=== PATIENT | female | born 1985 | race Caucasian/White ===

== ENCOUNTER 2021-01-14 18:52 | Emergency (ER) | payer OTHER ==
--- NOTE | 2021-01-14 19:06 | EDM.PDOC ---
ED HPI GENERAL MEDICAL PROBLEM - General Stated Complaint: FOOT INJURY Time Seen by Provider: 01/14/21 18:58 Source of Information: Reports: Patient History Limitations: Reports: No Limitations - History of Present Illness INITIAL COMMENTS - FREE TEXT/NARRATIVE: Patient presents from the [place] with an inversion left ankle/foot injury. No previous injury. Not able to stand on it. no other injury. most of the pain is radiating to the 5th toe. Onset: Today Duration: Constant Location: Reports: Lower Extremity, Left Improves with: Reports: None Worsens with: Reports: Movement Associated Symptoms: Reports: No Other Symptoms Left Foot Pain Score (Numeric/FACES): 8 - Related Data Allergies Allergy/AdvReac Type Severity Reaction Status Date / Time No Known Allergies Allergy Verified 01/14/21 19:11 Home Meds: Home Meds . [No Known Home Meds] 01/14/21 [History] Past Medical History - Past Surgical History HEENT Surgical History: Reports: Tonsillectomy Musculoskeletal Surgical History: Reports: ORIF Review of Systems - Review of Systems Review Of Systems: See Below Constitutional: Reports: No Symptoms Eyes: Reports: No Symptoms Ears: Reports: No Symptoms Nose: Reports: No Symptoms Mouth/Throat: Reports: No Symptoms Respiratory: Reports: No Symptoms Cardiovascular: Reports: No Symptoms GI/Abdominal: Reports: No Symptoms Genitourinary: Reports: No Symptoms Musculoskeletal: Reports: Foot Pain (left foot) Skin: Reports: No Symptoms Neurological: Reports: No Symptoms ED EXAM, GENERAL - Physical Exam Exam: See Below Exam Limited By: No Limitations General Appearance: Alert, WD/WN, No Apparent Distress Eye Exam: Bilateral Eye: EOMI, PERRL Nose: Normal Inspection Throat/Mouth: Normal Inspection, Normal Oropharynx, Normal Voice Head: Atraumatic Respiratory/Chest: No Respiratory Distress, Lungs Clear Cardiovascular: Normal Peripheral Pulses, Regular Rate, Rhythm, No Murmur Extremities: Other (left foot with swelling at the lateral mid tarsal bones dorsal foot. decreased sensation to light touch to the 4th toe. dorsalis pedis and posterior tibialis pulses intact) Neurological: Alert, Oriented, Normal Cognition Course - Vital Signs Last Recorded V/S: Last Vital Signs Temp 36.8 C 01/14/21 18:54 Pulse 81 01/14/21 18:54 Resp 14 01/14/21 18:54 BP 127/89 01/14/21 18:54 Pulse Ox 99 01/14/21 18:54 - Radiology Interpretation Free Text/Narrative:: negative foot x-ray. interpreted by radiology - Re-Assessments/Exams Free Text/Narrative Re-Assessment/Exam: 01/14/21 19:12 offered pain medication and ice, declined. Will get an x-ray and will need crutches. Departure - Departure Time of Disposition: 20:07 Disposition: Home, Self-Care 01 Clinical Impression: Sprain of foot, left - Discharge Information *PRESCRIPTION DRUG MONITORING PROGRAM REVIEWED*: Not Applicable *COPY OF PRESCRIPTION DRUG MONITORING REPORT IN PATIENT TERRANCE: Not Applicable Instructions: Foot Sprain, Crutch Use, Adult, [id number] Additional Instructions: ice, rest, sid wrap, tylenol or motrin for pain and inflammation. Use the crutches until you can weight bear without pain. follow up with PCP or orthopedics as needed Sepsis Event Note (ED) - Focused Exam Vital Signs: Vital Signs Temp Pulse Resp BP Pulse Ox 01/14/21 18:54 36.8 C 81 14 127/89 99
--- NOTE | 2021-01-14 20:03 | CR ---
[id number] RAD/RAD Foot Left 3V Min EXAM: RAD Foot Left 3V Min CLINICAL DATA: TRAUMA COMPARISON: No previous similar exam is available. FINDINGS: No fracture or dislocation is seen. There is no radiopaque foreign body in the soft tissues. There is no air in the soft tissues. There is no cortical thickening or periosteal reaction either. IMPRESSION: NEGATIVE PLAIN FILM EXAM. Alonzo John MD 01/14/212001 Thank you for allowing us to participate in the care of your patient.
== END 2021-01-14 20:30 | disposition home or self-care (01) ==
LOC: VM.ED 18:52
DX: S93.602A Unspecified sprain of left foot, initial encounter (principal); X50.1XXA Overexertion from prolonged static or awkward postures, initial encounter
CPT/HCPCS: 73630-LT; 99283; 99283-25